=== PATIENT | male | born 1975 | race Caucasian/White ===

== ENCOUNTER → 2019-07-15 12:03 | Outpatient (CLI) | payer BC, SELFPAY ==
--- NOTE | ~2019-07-15 | XR_ITS ---
EXAMINATION: XR foot LT min 3V EXAM DATE: 07/15/2019 12:30 INDICATION: No known recent injury provided at this time. Pain of the left foot. Polyarthritis. TECHNIQUE: Left foot dorsoplantar, lateral and oblique projections obtained and reviewed. There is n o prior study for comparison. FINDINGS: Left metatarsal bones unremarkable. The joint spaces are uniform. There are no acute f ractures or dislocations identified. There is no subcutaneous gas. The soft tissue is unremarkable. There are no radiopaque foreign bodies. There are no bony erosions identified. IMPRESSION: 1. Unremarkable XR foot LT min 3V exam. Reviewed, dictated and finalized at location A. F MEDICAL DIRECTOR
--- NOTE | ~2019-07-15 | XR_ITS ---
EXAMINATION: XR foot RT min 3V DATE: 07/15/2019 12:30 INDICATION: Polyarthritis. TECHNIQUE: 4 views of right foot were obtained. COMPARISON: Right foot radiograph 10/26/2016 FINDINGS: Bone alignment is normal. No fracture. There is mild osteoarthritis of second, third, and f ifth metatarsophalangeal joints and most of the interphalangeal joints. There are enthesophytes at th e posterior and plantar aspects of calcaneal tuberosity. IMPRESSION: 1. Mild polyarticular osteoarthritis. Reviewed, dictated and finalized at location A. S BLOCK BENDER
--- NOTE | ~2019-07-15 | XR_ITS ---
EXAMINATION: XR sacroiliac joints min 3V EXAM DATE: 07/15/2019 12:30 INDICATION: No known recent injury provided at this time. Pain of the sacroiliac joints. Polyarthrit is. TECHNIQUE: Sacroiliac joints frontal and bilateral oblique projections. There is no prior study for comparison. FINDINGS: Mild to moderate disc disease at L5-S1. There is mild symmetric bilateral sacroiliac prima ry osteoarthritis. There are no bony erosions identified. No fusion of the joints. There are no acut e fractures or dislocations identified. There is no subcutaneous gas. The soft tissue is unremarkab le. There are no radiopaque foreign bodies. IMPRESSION: Mild symmetric bilateral sacroiliac joint osteoarthritis. Reviewed, dictated and finalized at location A. ERCIAL LINES MANAGER
== END ==
DX: M53.3 Sacrococcygeal disorders, not elsewhere classified (principal); M19.071 Primary osteoarthritis, right ankle and foot
CPT/HCPCS: 72202; 73630

== ENCOUNTER 2022-03-25 17:46 | Emergency (ER) | payer BC, SELFPAY ==
--- NOTE | 2022-03-25 18:00 | ED.ABDPAIN ---
HPI - Abdominal Pain General Chief Complaint: Abdominal Pain Stated Complaint: Abdominal Pain Time Seen by Provider: 03/25/22 18:00 Source: patient Mode of arrival: ambulatory Limitations: no limitations History of Present Illness HPI narrative: 47-year-old male presents with complaint of chills, fatigue, nausea, diarrhea today. Began feeling nauseated before bed last night. Reports he has had 7 episodes of diarrhea today. Is concerned that he may have food poisoning although he does not a thing he ate any bad food. Reports intermittent abdominal cramping. To lower abdomen but states Sometimes to right lower quadrant so is concerned he may have appendicitis. ambulatory with steady gait. Able to drink water and keep it down. All systems reviewed and negative except as noted above. Related Data Home Medications Medication Instructions Recorded Confirmed ibuprofen 800 mg tablet mg 03/25/22 Allergies Allergy/AdvReac Type Severity Reaction Status Date / Time No Known Allergies Allergy Unknown Unverified 08/08/06 10:31 Review of Systems Review of Systems: CONSTITUTIONAL: Report fever, chills patient deniessweats. EYES: Denies visual changes, redness, or discharge. ENT: Denies rhinorrhea, congestion, sore throat, or otalgia. CARDIOVASCULAR: Denies chest pain, palpitations, or edema. RESPIRATORY: Denies cough or dyspnea. GASTROINTESTINAL: reports abdominal pain, nausea, diarrhea. denies vomiting. GENITOURINARY: Denies dysuria or hematuria. SKIN: Denies rash or itching. MUSCULOSKELETAL: Denies back pain, joint pain, or myalgia. NEUROLOGIC: Denies headache, numbness, or weakness. PSYCHIATRIC: Denies anxiety or depression. All other systems reviewed are negative, except as documented in HPI. PMFSH Comments At time of signature, agree with nursing past medical, surgical, social and family history. There is no relevant family history pertinent to the presenting complaint. Exam Narrative: GENERAL: This is a well-nourished, well-developed patient . Patient ill-appearing but in no distress. HEAD: normocephalic, atraumatic. EYES: PERRL. Sclera clear/white. Vision is grossly intact. EARS: External ears normal NOSE: External nose normal THROAT: Mucous membranes moist, posterior pharynx clear. NECK: Neck supple, non-tender without lymphadenopathy, masses or thyromegaly. CARDIOVASCULAR: Regular rate and rhythm without murmurs, gallops, or rubs. RESPIRATORY: Clear to auscultation. Breath sounds equal bilaterally. No wheezes, rales, or rhonchi. SKIN: warm, Dry, intact with no suspicious lesions or rash, good texture and turgor. NEURO: awake, alert, and oriented to person, place and time. There were no obvious focal neurologic abnormalities. EXTREMITIES: No joint tenderness, effusion, or edema noted. Course Course Level of Care: Express Care Visit Vital Signs Vital signs: Vital Signs Temperature 37.2 C 03/25/22 18:09 Pulse Rate 108 H 03/25/22 18:09 Respiratory Rate 20 03/25/22 18:09 Blood Pressure 114/78 03/25/22 18:09 Pulse Oximetry 100 03/25/22 18:09 Oxygen Delivery Room Air 03/25/22 18:09 Temperature 37.2 C 03/25/22 18:09 Pulse Rate 108 H 03/25/22 18:09 Respiratory Rate 20 03/25/22 18:09 Blood Pressure 114/78 03/25/22 18:09 Pulse Oximetry 100 03/25/22 18:09 Oxygen Delivery Room Air 03/25/22 18:09 Reviewed MDM - Abdominal Pain MDM Narrative Medical decision making narrative: afebrile. No vomiting. No episodes of diarrhea while at express care. No tenderness to abdomen on palpation. Negative influenza test. Recommend Motrin, Tylenol to treat pain and fever. Patient reports that he has Zofran at home if he becomes nauseated. Patient is aware of diagnosis, understands and agrees to treatment plan. Anticipatory guidance given. Patient agrees to follow-up as directed and is aware of reasons to seek care at the emergency department. Portions of th
[2022-03-25 18:09] VITALS: BP 114/78; PULSE 108; RESP 20; TEMP 37.2; O2SAT 100
[2022-03-25] MEDS: ONDANSETRON HCL ODT 4 MG TABLET SUBLINGUAL (18:17)
== END 2022-03-25 18:50 | disposition home or self-care (01) ==
PROVIDERS: Emergency Provider Nurse Practitioner Family
DX: B34.9 Viral infection, unspecified (principal); R19.7 Diarrhea, unspecified
CPT/HCPCS: 87804; 99213; A9270; G0463

== ENCOUNTER 2024-07-31 18:12 | Observation (INO) | payer SELFPAY ==
--- NOTE | ~2024-07-31 | XR_ITS ---
CHEST RADIOGRAPH, PA AND LATERAL CLINICAL HISTORY: CP . COMPARISON: None available TECHNIQUE: PA and lateral views of the chest. FINDINGS The cardiomediastinal silhouette is unremarkable. The lungs are clear. Visualized osseous structures and soft tissues are unremarkable. IMPRESSION: No focal infiltrate or effusion. Reviewed, dictated and finalized at location A.
--- NOTE | 2024-07-31 18:14 | ECG_ITS ---
Test Date: 2024-07-31 18:23:50 Measurements Intervals [place] Rate: 82 P: 87 MN: 167 QRS: 19 QRSD: 92 T: 54 QT: 369 QTc: 432 Interpretive Statements SINUS RHYTHM POSSIBLE LEFT ATRIAL ENLARGEMENT [-0.1mV P WAVE IN V1/V2] INCOMPLETE RIGHT BUNDLE BRANCH BLOCK No previous ECG available for comparison Electronically Signed On 08-01-2024 18:25:29 CDT by Sharmaine Solares M.D.
--- OUTSIDE RECORDS SUMMARY | 2024-07-31 18:15 | XMS_ITS | Patient Health Record ---
Author Organization [facility] Address [address] [place], [place] [id number] Care Team Providers Care Insurance Verifier Name Role Phone Maury Espinoza Unavailable [phone] CHARLI PICKERING MD Unavailable Unavailable ALLERGIES Allergen (clinical drug ingredient) Drug/Non Drug Allergy documented on EMR Reaction Allergy Type Onset Date Status None (uncoded) Unknown Allergy Activ e REASON FOR REFERRAL No Information MEDICATIONS Medication SIG (Take, Route, Frequency, Duration) Notes Start Date End Date Status Humira Pen Citrate Free 40mg/0.4ml 40mg Subcutaneous every other week for 30 days 08/13/2019 Active ibuprofen 200 mg 3 tab(s) orally once a day prn Active SOCIAL HISTORY Tobacco Use: Social History Observation Description Date Details (start date - stop date) Never Smoker NA - NA Sex Assigned At : Social History Observation Description Sex Assigned At Unknown Tobacco Use: Question Answer Notes Smoking Status nonsmoker PROBLEMS Problem Type ICD Code Onset Dates Problem Status W/U Status Risk SNOMED Code Notes Problem Psoriasis (L40.9) Active confirmed 9014 002 Problem Polyarthritis (M13.0) Active confirmed 71962235 Problem Low back pain (M54.5) Active confirmed 065484867 Problem Screening-pulmonar y TB (Z11.1) Active confirmed 054167239 Problem Psoriatic arthritis (L40.50) Active confirmed 849360628 PLAN OF TREATMENT Pending Test Test Name Order Date X ray : SI joints- outside order 020 X ray : Foot Left- outside order 020 X ray : Foot Right- outside order 2019 Insurance Providers Payer Name Payer Address Payer Phone Subscriber Number Group Number Insured Name Patient Relationship to Insured Coverage Start Date Coverage End Date [employer]er[employer]ianna Ramirez Preferred [address] [address] [place] [address] [id number] Ann-Marie Underwood Self - patient is the insured 9 MEDICAL (GENERAL) HISTORY Medical History History ICD Code Psoriasis diagnosed 2017 tension headaches chest pain IBS rectal bleeding - fistula 2015 sore on penis kidney stones Surgical History Surgery Date(Month/Year) none Hospitalization History Reason Date(Month/Year) none
[2024-07-31 18:18] VITALS: BP 143/85; PULSE 82; RESP 16; TEMP 36.3; O2SAT 100
[2024-07-31 18:39] LABS: Basophils Percent Auto 0.3 % (0.2-1.2); Eosinophils Absolute Auto 0.1 K/mm3 (0-0.3); Eosinophils Percent Auto 0.9 % (0-4.4); Hematocrit 43.3 % (42.0-52.0); Hemoglobin 14.1 g/dL (14.0-18.0); Immature Granulocyte Absolute 0.01 K/mm3 (0.00-0.031); Immature Granulocyte Percent A 0.2 % (0-0.5); Lymphocytes Absolute Auto 2.77 K/mm3 (0.9-3.2); Lymphocytes Percent Auto 43.6 % (18.3-44.2); Mean Corpuscular HGB Conc 32.6 g/dl (32-36); Mean Corpuscular Hemoglobin 27.2 pg (26-34); Mean Corpuscular Volume 83.4 fl (80-100); Monocytes Absolute Auto 0.6 K/mm3 (0.1-0.6); Monocytes Percent Auto 8.6 % (2.6-8.5); Neutrophils Percent Auto 46.4 % (45.5-73.1); Platelet Count Result 256 k/mm3 (150-375); Red Blood Count 5.19 M/mm3 (4.6-6.20); Red Cell Distribution Width 14.4 % (11.5-14.5); White Blood Count 6.4 K/mm3 (4.5-10.0)
[2024-07-31 18:49] LABS: Alanine Aminotransferase 16 U/L (6-50); Albumin Level 4.5 g/dL (3.5-5.1); Alkaline Phosphatase 82 U/L (38-126); Anion Gap 12 mmol/L (4-12); Aspartate Amino Transferase 18 U/L (17-59); Bilirubin,Total 0.3 mg/dL (0.2-1.3); Blood Urea Nitrogen 14 mg/dL (9-20); Calcium 9.5 mg/dL (8.4-10.2); Carbon Dioxide 22 mmol/L (22-30); Chloride 102 mmol/L (98-107); Estimated CRCL calculation 105 ml/min; Estimated Glomerular Filt Rate > 60; Glucose 124 mg/dL (65-110); Lipase 68 U/L (23-300); Potassium 3.8 mmol/L (3.4-5.0); Sodium 136 mmol/L (137-145)
[2024-07-31 18:50] LABS: Prothrombin Time 13.3 Seconds (11.1-14.7)
[2024-07-31 18:51] LABS: Partial Thromboplastin Time 26.7 Seconds (22.3-36.8)
[2024-07-31 19:00] LABS: Troponin I < 0.012 ng/mL (0.000-0.034)
--- NOTE | 2024-07-31 22:19 | ECG_ITS ---
Test Date: 2024-07-31 22:22:30 Measurements Intervals [place] Rate: 84 P: 76 [place]: 179 QRS: 15 QRSD: 93 T: 46 QT: 351 QTc: 416 Interpretive Statements SINUS RHYTHM POSSIBLE LEFT ATRIAL ENLARGEMENT [-0.1mV P WAVE IN V1/V2] INCOMPLETE RIGHT BUNDLE BRANCH BLOCK Compared to ECG 07/31/2024 18:23:50 NO SIGNIFICANT CHANGES Electronically Signed On 08-01-2024 18:28:04 CDT by Sharmaine Solares M.D.
[2024-07-31 22:24] VITALS: BP 169/100; PULSE 87; RESP 16; TEMP 36.8; O2SAT 100
--- NOTE | 2024-07-31 22:32 | PC.NURSE ---
Patient electing to leave after 2nd EKG and Trop-will follow up with PMD and patient Portal
[2024-07-31 22:59] LABS: Troponin I 0.472 ng/mL (0.000-0.034)
--- NOTE | 2024-07-31 23:02 | PC.NURSE ---
burrell gwendolynat home to notify him of elevated troponin and he stated he would return to er
[2024-07-31 23:51] VITALS: BP 141/91; PULSE 86; PULSE 90; RESP 12; TEMP 36.7; O2SAT 100
[2024-07-31 23:53] VITALS: O2SAT 100
[2024-08-01] VITALS (25 sets, daily range): BP systolic 109–131; BP diastolic 66–91; PULSE 68–125; RESP 14–24; TEMP 36.7–37.1; O2SAT 98–100; BMI 23.7
--- NOTE | 2024-08-01 00:04 | ECG_ITS ---
Test Date: 2024-08-01 00:12:45 Measurements Intervals [place] Rate: 68 P: 74 [place]: 173 QRS: 16 QRSD: 95 T: 40 QT: 365 QTc: 391 Interpretive Statements SINUS RHYTHM POSSIBLE LEFT ATRIAL ENLARGEMENT [-0.1mV P WAVE IN V1/V2] INCOMPLETE RIGHT BUNDLE BRANCH BLOCK Compared to ECG 07/31/2024 22:22:30 NO SIGNIFICANT CHANGES Electronically Signed On 08-01-2024 18:29:37 CDT by Sharmaine Solares M.D.
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
[2024-08-01] MEDS: ASPIRIN 81 MG CHEWABLE TABLET 324 MG PO (00:13)
[2024-08-01] MEDS: ENOXAPARIN 80 MG/0.8 ML SYRINGE SUB-Q (00:22)
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
--- NOTE | 2024-08-01 00:28 | ECHO_ITS ---
Patient Info Name: Renato Underwood Age: 49 years : 1975 Gender: Male Ht: 73 in Wt: 179 lbs BSA: 2.05 m2 HR: 89 bpm BP: 119 / 67 mmHg Heart Rhythm: Sinus Rhythm Technical Quality: Fair Exam Date: 08/01/2024 9:39 AM Exam Location: Echo Lab Patient Status: Inpatient Admit Date: 08/01/2024 Staff Ordering Physician: Adia Gonzales PA-C Zigzag Appliquer: Yue Jacinto RDCS Attending Provider: Pineda Duran MD Referring Physician: Janet MONZON; Exam Type: CA echo doppler color flow Study Info Indications - NSTEMI Complete two-dimensional, color flow and Doppler transthoracic echocardiogram is performed. Summary 1. Left ventricular chamber dimension is normal. 2. Left ventricular systolic function is normal, estimated at 60-65%. 3. There is mildly increased left ventricular wall thickness. 4. The left ventricular diastolic function is grade I diastolic dysfunction. 5. Right ventricular systolic function is normal. 6. No significant valvular disease. Left Ventricle Left ventricular chamber dimension is normal. Left ventricular systolic function is normal, estimated at 60-65%. There is mildly increased left ventricular wall thickness. The left ventricular diastolic function is grade I diastolic dysfunction. Right Ventricle Right ventricular chamber dimension is normal. Right ventricular systolic function is normal. Left Atria Left atrial chamber dimension is normal. Right Atria Right atrial chamber dimension is normal. Atrial Septum Intact interatrial septum visualized by color flow imaging. Aortic Valve The aortic valve is not well visualized. There is no aortic valve stenosis. There is no aortic valve regurgitation. Pulmonic Valve The pulmonic valve is not well visualized. There is trace pulmonic regurgitation. Mitral Valve There is trace mitral valve regurgitation. The mitral valve annulus is mildly calcified. Tricuspid Valve There is trace tricuspid valve regurgitation. Pericardium/Pleural There is no pericardial effusion. Inferior Vena Cava Normal inferior vena cava with >50% collapse upon inspiration consistent with normal right atrial pressure, 3 mmHg. Aorta The aortic root size at the sinus of Valsalva is normal. Left Ventricular Outflow Tract Name Value Normal LVOT 2D LVOT Diameter 2.1 cm LVOT Doppler LVOT Peak Gradient 4 mmHg LVOT Mean Gradient 2 mmHg LVOT VTI 19 cm LVOT VTI/AV VTI Ratio 0.8 LVOT Stroke Volume 65 ml LVOT CO 13.7 l/min LVOT CI 6.7 l/min/m2 Pulmonic Valve Name Value Normal RVOT Doppler RVOT Peak Gradient 2 mmHg PV Doppler PV Peak Gradient 2 mmHg Mitral Valve Name Value Normal MV Doppler MV Decel [place] 378 cm/s2 MV PHT 61 ms MV Area (PHT) 3.6 cm2 4.0-5.0 MV Diastolic Function MV E Peak Velocity 79 cm/s MV A Peak Velocity 65 cm/s MV E/A 1.2 MV Decel Time 209 ms MV Annular TDI MV E/e' (Septal) 7.1 <=8.0 MV E/e' (Lateral) 4.8 <=8.0 MV E/e' (Average) 6.0 Tricuspid Valve Name Value Normal TV Regurgitation Doppler TR Peak Velocity 222 cm/s TR Peak Gradient 20 mmHg Estimated PAP/RSVP RA Pressure 3 mmHg <=5 PA Systolic Pressure 23 mmHg <36 RV Systolic Pressure 23 mmHg <36 Aortic Valve Name Value Normal AV Doppler AV Peak Velocity 123 cm/s AV Peak Gradient 6 mmHg AV Mean Gradient 3 mmHg AV VTI 24 cm AV Area (Cont Eq VTI) 2.7 cm2 >=3.0 AV Area (Cont Eq Gareth) 2.8 cm2 AV Regurgitation 2D LVOT Area 3.5 cm2 Ventricles Name Value Normal LV Dimensions 2D/MM IVS Diastolic Thickness (2D) 0.8 cm 0.6-1.0 LVID Diastole (2D) 4.6 cm 4.2-5.8 LVIW Diastolic Thickness (2D) 0.9 cm 0.6-1.0 LVID Systole (2D) 3.1 cm 2.5-4.0 LVOT Diameter 2.1 cm LV Mass (2D Cubed) 132.70 g 88.00-224.00 LV Mass Index (2D Cubed) 65 g/m2 49-115 Relative Wall Thickness (2D) 0.41 LV Fractional Shortening/Ejection Fraction 2D/MM LV Fractional Shortening (2D) 33 % 25-43 LV EF (2D Teicholz) 61 % 52-72 LV Diastolic Volume (4C MOD) 148 ml LV EF (4C MOD) 64 % LV Diastolic Volume (2C MOD) 151 ml LV EF (2C MOD) 69 % LV Diastolic Volume (BP MOD) 151 ml 62-150 LV Diastolic Volume Index (BP MOD) 74 ml/m2 34-74 LV Systolic Volume (BP MOD) 51 ml 21-61 LV Systolic Volume Index (BP MOD) 25 ml/m2 11-31 LV EF (BP MOD) 66 % 52-72 LV Diastolic Length (4C) 9.0 cm LV Systolic Length (4C) 6.8 cm LV Stroke Volume (4C MOD) 95 ml Atria Name Value Normal LA Dimensions LA Volume (4C A-L) 60 ml LA Volume (BP A-L) 61 ml RA Dimensions RA Area (4C) 20.7 cm2 <=18.0 Report Signatures
--- NOTE | 2024-08-01 01:10 | ADMGEN ---
This patient, Renato Underwood, was admitted to IMU Room 211-01. Patient/family oriented to hospital policies and general routines including ID bracelet, bed and alarms, visiting hours, pain management, procedures, bathroom and other care routines, personal items, smoking policy, room service/diet, and visiting hours. Information on how to activate the Rapid Response Team has been discussed. Patient/Family are encouraged to report perceived risks to care and to ask questions if they do not understand what they are told or what they should do.
[2024-08-01 04:56] LABS: Cholesterol 212 mg/dL (0-200); HDL Direct 54 mg/dL; Triglycerides 95 mg/dL (<150)
[2024-08-01 04:59] LABS: Anion Gap 9 mmol/L (4-12); Blood Urea Nitrogen 10 mg/dL (9-20); Calcium 8.9 mg/dL (8.4-10.2); Carbon Dioxide 24 mmol/L (22-30); Chloride 107 mmol/L (98-107); Estimated CRCL calculation 140 ml/min; Estimated Glomerular Filt Rate > 60; Glucose 102 mg/dL (65-110); Potassium 3.7 mmol/L (3.4-5.0); Sodium 140 mmol/L (137-145)
[2024-08-01 05:07] LABS: LDL Cholesterol Direct 134 mg/dL
[2024-08-01] MEDS: ASPIRIN 81 MG CHEWABLE TABLET PO (09:07)
[2024-08-01 09:51] LABS: Hematocrit 42.1 % (42.0-52.0); Hemoglobin 13.2 g/dL (14.0-18.0); Mean Corpuscular HGB Conc 31.4 g/dl (32-36); Mean Corpuscular Hemoglobin 26.7 pg (26-34); Mean Corpuscular Volume 85.1 fl (80-100); Mean Platelet Volume 10.4 fl (7.4-10.4); Platelet Count Result 246 k/mm3 (150-375); Red Blood Count 4.95 M/mm3 (4.6-6.20); Red Cell Distribution Width 14.6 % (11.5-14.5); White Blood Count 6.7 K/mm3 (4.5-10.0)
--- NOTE | 2024-08-01 12:06 | PM.CNCAR ---
Assessment and Plan Assessment and plan (1) Non-ST elevation (NSTEMI) myocardial infarction: Code(s): I21.4 - Non-ST elevation (NSTEMI) myocardial infarction Status: Acute Assessment and Plan: Given NSTEMI, recommended LHC. Discussed indication for the procedure, procedure details, risks vs benefits, alternative management strategies, etc. Patient unsure if he wants to undergo invasive evaluation. He is not even sure if he would be agreeable to take P2Y12 inhibitor. Discussed the risks vs benefits of medical management only if he does want LHC. Patient will think about his options and let us know his decision. In the meantime, continue ASA. Start high intensity statin. Echocardiogram pending. Recommendations and plan discussed with Hospitalist. 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 When driving home, he developed substernal / left sided chest pain with numbness of left arm, shortness of breath. Chest pain resolved when in the ER triage area. Chest pain lasted for probably a few hours. No family history of heart disease. Smoked when young, but quit in his 20s. Initial troponin negative, however, increased to 1.370. He currently remains chest pain free. Tele stable. Review of Systems Review of Systems: All systems reviewed & are unremarkable except as noted in HPI and below (HPI) [facility] Past Medical History Medical History Kidney stones Psoriasis Surgical History Surgical History History of hand surgery right Family History Family History Mother Major depression Father Atrial fibrillation Social History Social History Social History: Surrogate medical decision maker: Haily Underwood, spouse. Code status: Full code. Smoking packs per day: 1 Smoking cigarettes per day: 20.0 Years smoked: 8 Smoking pack-years: 8.00 Smoking status: Former smoker Alcohol intake: former Substance use: never Do You Feel Safe in your Home?: Yes Lack of Transportation: No Lack of Food: Never True Current Housing: I Have Housing Concerned About Future Housing: No Difficulty Paying Gas/Electric Bills: No Difficulty Paying for Meds: No Currently Unemployed: No Education: Decline to Answer Difficulty w/ Childcare or Family Care: No Additional living arrangements comments: Lives with spouse and children in [place]. 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 Spiritual care concerns: No Meds Home Medications and Allergies Home Medications ?Medication ?Instructions ?Recorded ?Confirmed ?Type No Home Medications 08/01/24 08/01/24 History Allergies Allergy/AdvReac Type Severity Reaction Status Date / Time No Known Allergies Allergy Unknown Verified 07/31/24 23:52 Vital Signs Vital Signs - 24 hr 07/31/24 18:18 07/31/24 22:24 07/31/24 23:51 Temperature 36.3 C L 36.8 C Pulse Rate 82 87 86 Respiratory Rate 16 16 Blood Pressure 143/85 H 169/100 H Pulse Oximetry 100 100 Oxygen Delivery Room Air 07/31/24 23:51 07/31/24 23:51 07/31/24 23:53 Temperature 36.7 C Pulse Rate 90 Respiratory Rate 12 Blood Pressure 141/91 H Pulse Oximetry 100 100 100 Oxygen Delivery Room Air Room Air 08/01/24 01:05 08/01/24 01:13 08/01/24 02:00 Temperature 36.7 C Pulse Rate 69 95 69 Respiratory Rate 16 16 Blood Pressure 131/84 Pulse Oximetry 100 100 Oxygen Delivery Room Air 08/01/24 03:33 08/01/24 03:37 08/01/24 04:00 Temperature 37.1 C Pulse Rate 68 78 87 Respiratory Rate 16 16 Blood Pressure 119/67 Pulse Oximetry 99 98 Oxygen Delivery Room Air 08/01/24 06:00 08/01/24 08:00 08/01/24 08:00 Temperature 36.7 C Pulse Rate 89 85 86 Respiratory Rate 16 Blood Pressure 126/66 Pulse Oximetry 98 Oxygen Delivery 08/01/24 10:00 Temperature Pulse Rate 83 Respiratory Rate Blood Pressure Pulse Oximetry Oxygen Delivery Exam Const: General: comfortable and no acute distress HENMT: Mouth: Yes moist mucous membranes Eyes: General: appearance normal, both eyes and all related structures Sclera: sclerae normal Resp: Effort & Inspection: normal respiratory effort Cardio: Rate: regular rate Rhythm: regular rhythm Heart sounds: no murmurs Skin: General skin exam: normal color Neuro: Speech: normal speech Psych: Mental Status: mental status grossly normal Affect: normal affect Results Labs and Meds 08/01/24 04:28 08/01/24 04:28 Lab results: Cardiac Enzymes 07/31/24 07/31/24 08/01/24 Range/Units 18:33 22:26 00:09 AST 18 (17-59) U/L Troponin I < 0.012 0.472 H* D 1.370 H* D (0.000-0.034) ng/mL Coagulation 07/31/24 Range/Units 18:33 PT 13.3 (11.1-14.7) Seconds APTT 26.7 (22.3-36.8) Seconds Lipids 08/01/24 Range/Units 04:28 Triglycerides 95 (<150) mg/dL Cholesterol 212 H (0-200) mg/dL CBC 07/31/24 08/01/24 Range/Units 18:33 04:28 WBC 6.4 6.7 (4.5-10.0) K/mm3 RBC 5.19 4.95 (4.6-6.20) M/mm3 Hgb 14.1 13.2 L (14.0-18.0) g/dL Hct 43.3 42.1 (42.0-52.0) % Plt Count 256 246 (150-375) k/mm3 Lymph # (Auto) 2.77 (0.9-3.2) K/mm3 [place] # (Auto) 0.6 (0.1-0.6) K/mm3 Eos # (Auto) 0.1 (0-0.3) K/mm3 Baso # (Auto) 0.0 (0.0-0.1) K/mm3 Comprehensive Metabolic Panel 07/31/24 08/01/24 Range/Units 18:33 04:28 Sodium 136 L 140 (137-145) mmol/L Potassium 3.8 3.7 (3.4-5.0) mmol/L Chloride 102 107 (98-107) mmol/L Carbon Dioxide 22 24 (22-30) mmol/L BUN 14 10 (9-20) mg/dL Creatinine 0.86 0.63 L (0.7-1.3) mg/dL Glucose 124 H 102 (65-110) mg/dL Calcium 9.5 8.9 (8.4-10.2) mg/dL AST 18 (17-59) U/L ALT 16 (6-50) U/L Alkaline Phosphatase 82 (38-126) U/L Total Protein 7.0 (6.3-8.2) g/dL Albumin 4.5 (3.5-5.1) g/dL Intake and Output 07/31/24 08/01/24 08/01/24 23:59 07:59 15:59 Other: # Unmeasured Voids 1 Patient Weight 08/01/24 23:59 Weight 81.6 kg
[2024-08-01 12:36] LABS: Hemoglobin A1C 5.5 % (<5.7)
--- NOTE | 2024-08-01 13:53 | P.PNIM_ITS ---
Progress Note: A&P Assessment and Plan (1) Non-ST elevation (NSTEMI) myocardial infarction: Code(s): I21.4 - Non-ST elevation (NSTEMI) myocardial infarction Status: Acute (2) Psoriasis: Code(s): L40.9 - Psoriasis, unspecified Status: Acute Plan NSTEMI The patient presented to the emergency department with complaints of chest pressure troponin x3 today is trending up, EKG shows sinus rhythm, no ST elevation Consistent [address]-elevation myocardial infarction. received enoxaparin 1 milligram/kilogram x1 and aspirin 324 mg. 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 Subjective Date/time seen: 08/01/24 13:53 Interval history: I saw examined the patient today. Patient denies chest pain shortness breath, abdomen pain, nausea vomiting. Patient is afebrile, patient has a tachycardia, pulse ox 98 room air, Labs reviewed, CBC and chemistry unremarkable Troponin is trending up Exam Narrative: GENERAL: Pleasant, in no acute distress. Well-nourished. - EYES: EOMI. Anicteric. - HENT: Moist mucous membranes. - LUNGS: Clear to auscultation bilateral ly, no wheezing, rhonchi, or rales. - CARDIOVASCULAR: Regular rate and rhyth m. No murmur. No JVD. - ABDOMEN: Soft, non-tender and non-dist ended. No palpable masses. - EXTREMITIES: No edema. Peripheral puls es 2+. Non-tender. - NEUROLOGIC: No focal neurological defi cits. CN II-XII grossly intact. - PSYCHIATRIC: Awake, Alert and oriented x 3. Appropriate mood and affect. - SKIN: No rashes or lesions. Warm. - LYMPH: No cervical lymphadenopathy. Objective Data Vital Signs Vital Signs: Vital Signs - 24 hr 07/31/24 18:18 07/31/24 22:24 07/31/24 23:51 Temperature 97.3 F L 98.2 F Pulse Rate 82 87 86 Respiratory Rate 16 16 Blood Pressure 143/85 H 169/100 H Pulse Oximetry 100 100 Oxygen Delivery Room Air 07/31/24 23:51 07/31/24 23:51 07/31/24 23:53 Temperature 98.1 F Pulse Rate 90 Respiratory Rate 12 Blood Pressure 141/91 H Pulse Oximetry 100 100 100 Oxygen Delivery Room Air Room Air 08/01/24 01:05 08/01/24 01:13 08/01/24 02:00 Temperature 98.0 F Pulse Rate 69 95 69 Respiratory Rate 16 16 Blood Pressure 131/84 Pulse Oximetry 100 100 Oxygen Delivery Room Air 08/01/24 03:33 08/01/24 03:37 08/01/24 04:00 Temperature 98.7 F Pulse Rate 68 78 87 Respiratory Rate 16 16 Blood Pressure 119/67 Pulse Oximetry 99 98 Oxygen Delivery Room Air 08/01/24 06:00 08/01/24 08:00 08/01/24 08:00 Temperature 98.1 F Pulse Rate 89 85 86 Respiratory Rate 16 Blood Pressure 126/66 Pulse Oximetry 98 Oxygen Delivery 08/01/24 10:00 08/01/24 12:00 Temperature Pulse Rate 83 125 H Respiratory Rate Blood Pressure Pulse Oximetry Oxygen Delivery Meds/Results Medications: Active Medications Generic Name Dose Route Start Last Admin Trade Name Freq PRN Reason Stop Dose Admin Aspirin 81 mg 08/01/24 08:00 08/01/24 09:07 Aspirin 81 Mg Chewable Tablet PO 81 mg DAILY@0800 [facility] Administration Atorvastatin Calcium 80 mg 08/01/24 12:15 08/01/24 13:03 Atorvastatin 40 Mg Tablet PO Not Given DAILY [facility] Morphine Sulfate 2 mg 08/01/24 00:14 Morphine Sulfate (*Crx) 2 Mg/Ml Inj IV PUSH Q2H PRN Pain Rated 7-10 Ondansetron HCl 4 mg 08/01/24 00:14 Ondansetron Inj 4 Mg/2 Ml Vial IV PUSH Q4H PRN Nausea Perflutren Lipid Microsphere 0 ml 08/01/24 00:25 Perflutren Lipid Microspheres 1.5 Ml Vial Diluted To 10 Ml Total Volume IV PUSH 08/04/24 00:28 ONCE PRN adequate visualization Protocol Radiology Results: ITS Impressions Chest X-Ray 07/31/24 19:11 IMPRESSION: No focal infiltrate or effusion. Labs Labs: Laboratory Results - last 24 hr 07/31/24 07/31/24 08/01/24 18:33 22:26 00:09 WBC 6.4 RBC 5.19 Hgb 14.1 Hct 43.3 MCV 83.4 MCH 27.2 MCHC 32.6 RDW 14.4 Plt Count 256 MPV 10.0 Immature Gran % (Auto) 0.2 Neut % (Auto) 46.4 Lymph % (Auto) 43.6 [place] % (Auto) 8.6 H Eos % (Auto) 0.9 Baso % (Auto) 0.3 Lymph # (Auto) 2.77 [place] # (Auto) 0.6 Eos # (Auto) 0.1 Baso # (Auto) 0.0 Abs Immat Gran (auto) 0.01 Absolute Neuts (auto) 3.0 Absolute Nucleated RBC 0.000 Nucleated RBC % 0.0 PT 13.3 INR 1.0 APTT 26.7 Sodium 136 L Potassium 3.8 Chloride 102 Carbon Dioxide 22 Anion Gap 12 BUN 14 Creatinine 0.86 Estim Creat Clear Calc 105 Estimated GFR > 60 Glucose 124 H Hemoglobin A1c Calcium 9.5 Total Bilirubin 0.3 AST 18 ALT 16 Alkaline Phosphatase 82 Troponin I < 0.012 0.472 H* D 1.370 H* D Total Protein 7.0 Albumin 4.5 Triglycerides Cholesterol LDL Cholesterol Direct HDL Direct Lipase 68 08/01/24 04:28 WBC 6.7 RBC 4.95 Hgb 13.2 L Hct 42.1 MCV 85.1 MCH 26.7 MCHC 31.4 L RDW 14.6 H Plt Count 246 MPV 10.4 Immature Gran % (Auto) Neut % (Auto) Lymph % (Auto) [place] % (Auto) Eos % (Auto) Baso % (Auto) Lymph # (Auto) [place] # (Auto) Eos # (Auto) Baso # (Auto) Abs Immat Gran (auto) Absolute Neuts (auto) Absolute Nucleated RBC Nucleated RBC % PT INR APTT Sodium 140 Potassium 3.7 Chloride 107 Carbon Dioxide 24 Anion Gap 9 BUN 10 Creatinine 0.63 L Estim Creat Clear Calc 140 Estimated GFR > 60 Glucose 102 Hemoglobin A1c 5.5 Calcium 8.9 Total Bilirubin AST ALT Alkaline Phosphatase Troponin I Total Protein Albumin Triglycerides 95 Cholesterol 212 H LDL Cholesterol Direct 134 HDL Direct 54 Lipase
--- NOTE | 2024-08-01 14:46 | WPDMODSED ---
Moderate Sedation Note-Pt Data Patient Data Diagnosis: NSTEMI Present Complaint: NSTEMI Procedure to be performed/Plan: Coronary angiography, left heart cath, +/- PCI Allergies Allergy/AdvReac Type Severity Reaction Status Date / Time No Known Allergies Allergy Unknown Verified 07/31/24 23:52 Home Medications ?Medication ?Instructions ?Recorded ?Confirmed ?Type No Home Medications 08/01/24 08/01/24 History Current Medications: Active Medications Aspirin (Aspirin 81 Mg Chewable Tablet) 81 mg PO DAILY@0800 [facility] Last Admin: 08/01/24 09:07 Dose: 81 mg Atorvastatin Calcium (Atorvastatin 40 Mg Tablet) 80 mg PO DAILY [facility] Last Admin: 08/01/24 13:03 Dose: Not Given Morphine Sulfate (Morphine Sulfate (*Crx) 2 Mg/Ml Inj) 2 mg IV PUSH Q2H PRN PRN Reason: Pain Rated 7-10 Ondansetron HCl (Ondansetron Inj 4 Mg/2 Ml Vial) 4 mg IV PUSH Q4H PRN PRN Reason: Nausea Perflutren Lipid Microsphere (Perflutren Lipid Microspheres 1.5 Ml Vial Diluted To 10 Ml Total Volume) 0 ml IV PUSH ONCE PRN; Protocol PRN Reason: adequate visualization Stop: 08/04/24 00:28 Sedation/Anesthesia: No previous sedation/anesthesia problems (including family history). [facility] Past Medical History Medical History Kidney stones Psoriasis Surgical History Surgical History History of hand surgery right Family History Family History Mother Major depression Father Atrial fibrillation Social History Social History Social History: Surrogate medical decision maker: Haily Underwood, spouse. Code status: Full code. Smoking packs per day: 1 Smoking cigarettes per day: 20.0 Years smoked: 8 Smoking pack-years: 8.00 Smoking status: Former smoker Alcohol intake: former Substance use: never Do You Feel Safe in your Home?: Yes Lack of Transportation: No Lack of Food: Never True Current Housing: I Have Housing Concerned About Future Housing: No Difficulty Paying Gas/Electric Bills: No Difficulty Paying for Meds: No Currently Unemployed: No Education: Decline to Answer Difficulty w/ Childcare or Family Care: No Additional living arrangements comments: Lives with spouse and children in [place]. 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 Spiritual care concerns: No Mod Sed Physical Exam Physical Exam Pre Procedural Exam: Normal: Appearance, Lungs, Heart Rate, Heart Rhythm, Neuro Exam, Extremities and Skin Hours since solid foods: 12 Hours since liquid intake: 8 Mallampati Classification: class II Internal Medicine - PN: Obj Da Vital Signs Vital Signs: Vital Signs - 24 hr 07/31/24 18:18 07/31/24 22:24 07/31/24 23:51 Temperature 36.3 C L 36.8 C Pulse Rate 82 87 86 Respiratory Rate 16 16 Blood Pressure 143/85 H 169/100 H Pulse Oximetry 100 100 Oxygen Delivery Room Air 07/31/24 23:51 07/31/24 23:51 07/31/24 23:53 Temperature 36.7 C Pulse Rate 90 Respiratory Rate 12 Blood Pressure 141/91 H Pulse Oximetry 100 100 100 Oxygen Delivery Room Air Room Air 08/01/24 01:05 08/01/24 01:13 08/01/24 02:00 Temperature 36.7 C Pulse Rate 69 95 69 Respiratory Rate 16 16 Blood Pressure 131/84 Pulse Oximetry 100 100 Oxygen Delivery Room Air 08/01/24 03:33 08/01/24 03:37 08/01/24 04:00 Temperature 37.1 C Pulse Rate 68 78 87 Respiratory Rate 16 16 Blood Pressure 119/67 Pulse Oximetry 99 98 Oxygen Delivery Room Air 08/01/24 06:00 08/01/24 08:00 08/01/24 08:00 Temperature 36.7 C Pulse Rate 89 85 86 Respiratory Rate 16 Blood Pressure 126/66 Pulse Oximetry 98 Oxygen Delivery 08/01/24 10:00 08/01/24 12:00 08/01/24 12:00 Temperature 36.8 C Pulse Rate 83 125 H 84 Respiratory Rate 16 Blood Pressure 121/73 Pulse Oximetry 100 Oxygen Delivery 08/01/24 14:00 Temperature Pulse Rate 84 Respiratory Rate Blood Pressure Pulse Oximetry Oxygen Delivery Meds/Results Medications: Active Medications Generic Name Dose Route Start Last Admin Trade Name Freq PRN Reason Stop Dose Admin Aspirin 81 mg 08/01/24 08:00 08/01/24 09:07 Aspirin 81 Mg Chewable Tablet PO 81 mg DAILY@0800 [facility] Administration Atorvastatin Calcium 80 mg 08/01/24 12:15 08/01/24 13:03 Atorvastatin 40 Mg Tablet PO Not Given DAILY [facility] Morphine Sulfate 2 mg 08/01/24 00:14 Morphine Sulfate (*Crx) 2 Mg/Ml Inj IV PUSH Q2H PRN Pain Rated 7-10 Ondansetron HCl 4 mg 08/01/24 00:14 Ondansetron Inj 4 Mg/2 Ml Vial IV PUSH Q4H PRN Nausea Perflutren Lipid Microsphere 0 ml 08/01/24 00:25 Perflutren Lipid Microspheres 1.5 Ml Vial Diluted To 10 Ml Total Volume IV PUSH 08/04/24 00:28 ONCE PRN adequate visualization Protocol Radiology Results: ITS Impressions Chest X-Ray 07/31/24 19:11 IMPRESSION: No focal infiltrate or effusion. Labs 08/01/24 04:28 08/01/24 04:28 Labs: Laboratory Results - last 24 hr 07/31/24 07/31/24 08/01/24 18:33 22:26 00:09 WBC 6.4 RBC 5.19 Hgb 14.1 Hct 43.3 MCV 83.4 MCH 27.2 MCHC 32.6 RDW 14.4 Plt Count 256 MPV 10.0 Immature Gran % (Auto) 0.2 Neut % (Auto) 46.4 Lymph % (Auto) 43.6 [place] % (Auto) 8.6 H Eos % (Auto) 0.9 Baso % (Auto) 0.3 Lymph # (Auto) 2.77 [place] # (Auto) 0.6 Eos # (Auto) 0.1 Baso # (Auto) 0.0 Abs Immat Gran (auto) 0.01 Absolute Neuts (auto) 3.0 Absolute Nucleated RBC 0.000 Nucleated RBC % 0.0 PT 13.3 INR 1.0 APTT 26.7 Sodium 136 L Potassium 3.8 Chloride 102 Carbon Dioxide 22 Anion Gap 12 BUN 14 Creatinine 0.86 Estim Creat Clear Calc 105 Estimated GFR > 60 Glucose 124 H Hemoglobin A1c Calcium 9.5 Total Bilirubin 0.3 AST 18 ALT 16 Alkaline Phosphatase 82 Troponin I < 0.012 0.472 H* D 1.370 H* D Total Protein 7.0 Albumin 4.5 Triglycerides Cholesterol LDL Cholesterol Direct HDL Direct Lipase 68 08/01/24 04:28 WBC 6.7 RBC 4.95 Hgb 13.2 L Hct 42.1 MCV 85.1 MCH 26.7 MCHC 31.4 L RDW 14.6 H Plt Count 246 MPV 10.4 Immature Gran % (Auto) Neut % (Auto) Lymph % (Auto) [place] % (Auto) Eos % (Auto) Baso % (Auto) Lymph # (Auto) [place] # (Auto) Eos # (Auto) Baso # (Auto) Abs Immat Gran (auto) Absolute Neuts (auto) Absolute Nucleated RBC Nucleated RBC % PT INR APTT Sodium 140 Potassium 3.7 Chloride 107 Carbon Dioxide 24 Anion Gap 9 BUN 10 Creatinine 0.63 L Estim Creat Clear Calc 140 Estimated GFR > 60 Glucose 102 Hemoglobin A1c 5.5 Calcium 8.9 Total Bilirubin AST ALT Alkaline Phosphatase Troponin I Total Protein Albumin Triglycerides 95 Cholesterol 212 H LDL Cholesterol Direct 134 HDL Direct 54 Lipase ASA Classification/Sedation ASA Classification/Sedation ASA Class: III Emergent: No Risks: Risks, benefits and alternatives explained and patient/family accepted plan for sedation. Patient re-evaluated immediately prior to sedation.
--- NOTE | 2024-08-01 14:48 | P.PCNCC_ITS ---
Cardiac Cath Procedure Note Date of procedure:: 08/01/24 Performing physician:: CATHETERIZATION LABORATORY REPORT Procedure Date: 08/01/2024 Process Supervisor: Sharmaine Solares M.D., [facility]? Referring Physician: Sharmaine Solares M.D. Anesthesia: Versed and Fentanyl were ordered and given in my presence at 14:16, procedure ended at 14:32. Supervision of nurse monitored moderate sedation with Versed and Fentanyl was provided for 16 minutes. Total of Versed 1mg and Fentanyl 50mcg were administered by the Unemployment Claims Adjudicator RN Do Garcia. Pre-op Diagnosis: NSTEMI Post-op Diagnosis: Mild non-obstructive coronary artery disease of the major epicardial vessel. Significant ostial disease of small caliber second diagonal branch. Will treat with medical therapy. Procedure(s): 1. Moderate sedation 2. Ultrasound-guided access of the right radial artery 3. Coronary angiography Access Site: Right radial artery Brief History and Clinical Indications: Patient is a 49 year old male who is referred for [facility] for NSTEMI. All risks, benefits and alternatives to left heart catheterization with or without percutaneous coronary intervention was discussed at length with the patient. Risk of complications including but not limited to bleeding, infection, arrhythmia, stroke, worsening kidney function, blood loss, groin hematoma, limb loss, emergency coronary artery bypass grafting, and even were discussed with the patient and all questions were answered. The patient understood and wished to proceed. Time out called, patient name, date of , medical record number, allergies, procedure performed, identify Process Supervisor, patient and staff member concurred with accurate data, procedure carried on. Findings: LEFT HEART CATHETERIZATION FINDINGS: 1. Left main: The left main coronary artery is widely patent without any significant obstructive disease. 2. Left anterior descending: Calcium noted in the proximal and mid LAD. There is mild disease in the mid LAD. The first diagonal branch has moderate ostial stenosis. The second diagonal branch has 80-90% ostial stenosis (this is a small caliber vessel). 3. Left circumflex: The left circumflex artery and the main marginal branches have mild luminal irregularities without any significant obstructive angiographic disease. 4. Right coronary artery: The RCA is the dominant vessel. Calcifications noted in the proximal-mid RCA. The mid RCA has mild 40% calcific disease. Description of Procedure: Informed consent signed and placed in the chart. Patient transferred to laundry laborer room. Prepped and draped in usual sterile fashion. 2% lidocaine injected subcutaneously in right wrist area. 22-gauge venipuncture catheter used to access the right radial artery under ultrasound guidance. 6-FR slender sheath placed in right radial artery. Nitroglycerine and Verapamil were given intraarterial through the sheath. Versacore wire advanced under fluoroscopy 5F Tig 4 diagnostic catheter engaged Left Main Coronary Artery. 5F Tig 4 diagnostic catheter engaged Right Coronary Artery Multiple orthogonal angiogram obtained and reviewed Hemostasis was achieved by application of TR band. Disposition: Floor Plan: The patient will be monitored in the recovery area. Continue aggressive medical therapy and risk factor modification. ? Sharmaine Solares M.D. Interventional Cardiology
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
--- NOTE | 2024-08-01 17:40 | PC.NURSE ---
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 Arm board in place to right wrist. No bleeding, bruising, or hematoma to right wrist cath site. Notified by Dr. Henley patient can be discharged after 1730. Patient ambulating in room without any problems. Notified patient he is to keep arm board in place for 24 hours per label sewer staff.
== END 2024-08-01 18:28 | disposition home or self-care (01) ==
LOC: ANHED 08-01 00:16 → ANHIMU 08-01 03:12
PROVIDERS: Emergency Medicine; Internal Medicine; Physician Assistant; Admitting Provider Internal Medicine; Emergency Provider Emergency Medicine; Visit Provider Hospitalist
PROC: (CPT 93454; principal; 2024-08-01 11:25)
DX: I21.4 Non-ST elevation (NSTEMI) myocardial infarction (principal); I25.10 Atherosclerotic heart disease of native coronary artery without angina pectoris; R79.89 Other specified abnormal findings of blood chemistry; L40.9 Psoriasis, unspecified; Z87.442 Personal history of urinary calculi; Z87.891 Personal history of nicotine dependence
CPT/HCPCS: 36415; 71046; 80048; 80053; 80061; 83036; 83690; 84484; 85025; 85027; 85610; 85730; 93005; 93306; 93454; 96372; 99285; A9270; C1769; C1887; C1894; G0378; J1644; J1650; J2003; J2250; J3010; J7040